=== PATIENT | male | born 1995 | race Caucasian/White ===

== ENCOUNTER 2018-08-13 18:50 | Emergency (ER) | payer OTHER ==
--- NOTE | 2018-08-13 19:18 | ED Physician Documentation ---
PD HPI MALE - Stated complaint Stated Complaint: MALE - Chief complaint Chief Complaint: General - History obtained from History obtained from: Patient - History of Present Illness Timing - onset: How many days ago (3) Timing - duration: Days (3) Timing - details: Gradual onset, Intermittant Pain level max: 0 Pain level now: 0 Associated symptoms: Other (states girlfriend has a yeast infection and is concerned about pre[place] it.). No: Dysuria, Urinary frequency, Unable to urinate, Hematuria, Discharge PD HPI MALE CONTRIB FACTORS: Sexually active Similar symptoms before: Has not had sx before Recently seen: Clinic (tested for all STI 2 weeks ago) Review of Systems Constitutional: denies: Fever GI: denies: Vomiting : denies: Dysuria, Frequency, Hesitancy, Testicular pain, Testicular mass PD PAST MEDICAL HISTORY - Past Medical History Past Medical History: No - Past Surgical History Past Surgical History: No - Present Medications Home Medications: Ambulatory Orders Medication Instructions Recorded Confirmed No Known Home Medications 08/13/18 08/13/18 - Allergies Allergies/Adverse Reactions: Allergies Allergy/AdvReac Type Severity Reaction Status Date / Time No Known Drug Allergies Allergy Verified 08/13/18 19:05 - Social History Does the pt have substance abuse?: No PD ED PE NORMAL - Vitals Vital signs reviewed: Yes - General General: Alert and oriented X 3, No acute distress - HEENT HEENT: Moist mucous membranes - Neck Neck: Supple, no meningeal sign - Cardiac Cardiac: RRR - Respiratory Respiratory: No respiratory distress, Clear bilaterally - Male Male : Other (Normal external exam) - Derm Derm: Warm and dry - Neuro Neuro: Alert and oriented X 3 Results - Vitals Vitals: Vital Signs - 24 hr 08/13/18 08/13/18 19:02 20:06 Temperature 36.8 C 36.6 C Heart Rate 81 60 Respiratory 18 12 Rate Blood Pressure 133/88 H 104/69 O2 Saturation 100 97 Oxygen O2 Source Room air - Labs Labs: Laboratory Tests 08/13/18 19:13 Urine Color YELLOW Urine Clarity CLEAR Urine pH 6.5 Ur Specific Weiser 1.025 Urine Protein NEGATIVE Urine Glucose (UA) NEGATIVE Urine Ketones NEGATIVE Urine Occult Blood NEGATIVE Urine Nitrite NEGATIVE Urine Bilirubin NEGATIVE Urine Urobilinogen 0.2 (NORMAL) Ur Leukocyte Esterase NEGATIVE Ur Microscopic Review NOT INDICATED Urine Culture Comments NOT INDICATED PD MEDICAL DECISION MAKING - ED course Complexity details: considered differential, d/w patient ED course: 22-year-old male presents to the emergency department concerned that he caught a yeast infection from his girlfriend who is being treated for same. His exam is normal, however he complains of itching, therefore a dose of Diflucan was given. He had normal STI testing 2 weeks ago. Patient counseled regarding signs and symptoms for which I believe and urgent re-evaluation would be necessary. Patient with good understanding of and agreement to plan and is comfortable going home at this time This document was made in part using voice recognition software. While efforts are made to proofread this document, sound alike and grammatical errors may occur. Departure - Departure Disposition: 01 Home, Self Care Clinical Impression: Candidal skin infection Condition: Good Instructions: ED Candidiasis Cutaneous Follow-Up: JONI CALDERON MD [Primary Care Provider] - Within 1 week Comments: Return if you worsen. Follow-up with your doctor if you are not better in 1 week. Discharge Date/Time: 08/13/18 20:13
[2018-08-13 19:28] LABS: BILIRUBIN,URINE NEGATIVE (NEGATIVE); GLUCOSE, URINE (UA) NEGATIVE (NEGATIVE); KETONES,URINE (UA) NEGATIVE (NEGATIVE); LEUKOCYTE ESTERASE, URINE NEGATIVE (NEGATIVE); NITRITE,URINE NEGATIVE (NEGATIVE); OCCULT BLOOD,URINE NEGATIVE (NEGATIVE); PH,URINE 6.5 PH (5.0-7.5); PROTEIN,URINE NEGATIVE (NEGATIVE); UROBILINOGEN,URINE 0.2 (NORMAL) E.U./dL (NORMAL)
[2018-08-13 19:34] LABS: CLARITY,URINE CLEAR (CLEAR)
[2018-08-13] MEDS ORDERED: FLUCONAZOLE 100 MG TABLET PO STA (19:56)
[2018-08-13 20:07] VITALS: BP 104/69
== END 2018-08-13 20:13 | disposition home or self-care (01) ==
LOC: ED 18:50
DX: B37.2 Candidiasis of skin and nail (principal)
CPT/HCPCS: 81003; 99282; 99283; A9270; 81001; 87086